=== PATIENT | male | born 1990 | race Caucasian/White ===

== ENCOUNTER 2021-08-14 10:50 | Outpatient (REF) | payer MEDICARE, MEDICAID, SELFPAY ==
[2021-08-14 11:39] LABS: Binax Internal Control QC Valid; Binax Now Covid-19 Ag Negative (Negative)
== END 2021-08-14 10:51 | disposition home or self-care (01) ==
LOC: HO.HMGCLDS 10:50
PROVIDERS: Visit Provider Nurse Practitioner Acute Care
DX: Z13.89 Encounter for screening for other disorder (principal)